=== PATIENT | female | born 1955 | race Two or more races ===

== ENCOUNTER → 2023-05-12 | Outpatient (CLI) | payer OTHER ==
[2023-05-12 10:41] LABS: Eosinophils # (auto) 0.1 10 ^3/uL (0-0.8); Mean Corpuscular Hgb Conc. 31.5 g/dL (32.0-36.0); Monocytes # (auto) 0.5 10 ^3/uL (0-1.3); Nucleated Red Blood Cells % 0.1 %; White Blood Cell 6.6 10^3/uL (4.4-10.8)
[2023-05-12 10:42] LABS: Basophils # (auto) 0.1 10 ^3/uL (0-0.2); Basophils % (auto) 0.8 % (0.0-2.0); Eosinophils % (auto) 1.1 % (0.0-7.0); Hematocrit 39.1 % (36.0-46.0); Hemoglobin 12.3 g/dL (12.2-16.2); Lymphocytes % (auto) 45.6 % (10.0-50.0); Mean Corpuscular Hemoglobin 24.1 pg (28.0-32.0); Mean Corpuscular Volume 76.5 fL (80.0-100.0); Monocytes % (auto) 7.1 % (0.0-12.0); Neutrophils % (auto) 45.4 % (37.0-80.0); Red Blood Cells 5.11 10^6/uL (4.0-5.20); Red Cell Distribution Width 16.4 % (11.8-14.3)
[2023-05-12 10:54] LABS: Urine Bacteria FEW /hpf (None Seen); Urine Blood Negative /uL (Negative); Urine Mucus FEW (None Seen); Urine Specific Gravity 1.023 (1.001-1.035); Urine WBC 13 /hpf (0 - 5)
[2023-05-12 11:01] LABS: Potassium 4.4 mmol/L (3.5-5.1)
[2023-05-12 11:08] LABS: Folate (Folic Acid) > 24.00 ng/mL (5.38-24)
[2023-05-12 11:21] LABS: Albumin 3.9 g/dL (3.4-5.0); BUN/Creatinine Ratio 24.1 (10.0-20.0); Bilirubin, Total 0.4 mg/dL (0.2-1.0); Calcium 8.9 mg/dL (8.5-10.1); Total Protein 7.6 g/dL (6.4-8.2); Uric Acid 5.6 mg/dL (2.6-6.0)
== END | disposition home or self-care (01) ==
LOC: LAB 10:15
PROVIDERS: ATTEND Family Medicine
DX: E78.2 Mixed hyperlipidemia (principal); E03.9 Hypothyroidism, unspecified; M19.91 Primary osteoarthritis, unspecified site
CPT/HCPCS: 36415; 80053; 80061; 81001; 82607; 82746; 83036; 83540; 84443; 84550; 85025; 87086

== ENCOUNTER 2023-07-04 06:14 | Day surgery (SDC) | payer OTHER ==
[2023-07-01 11:58] LABS: Basophils # (auto) 0.1 10 ^3/uL (0-0.2); Eosinophils # (auto) 0.1 10 ^3/uL (0-0.8); Lymphocytes # (auto) 3.6 10 ^3/uL (0.4-5.4); White Blood Cell 8.3 10^3/uL (4.4-10.8)
[2023-07-01 11:59] LABS: Basophils % (auto) 1.1 % (0.0-2.0); Eosinophils % (auto) 1.4 % (0.0-7.0); Hematocrit 37.5 % (36.0-46.0); Hemoglobin 12.2 g/dL (12.2-16.2); Lymphocytes % (auto) 43.2 % (10.0-50.0); Mean Corpuscular Hemoglobin 24.6 pg (28.0-32.0); Mean Corpuscular Hgb Conc. 32.6 g/dL (32.0-36.0); Mean Corpuscular Volume 75.6 fL (80.0-100.0); Monocytes # (auto) 0.7 10 ^3/uL (0-1.3); Monocytes % (auto) 8.1 % (0.0-12.0); Neutrophils # (auto) 3.8 10 ^3/uL (1.6-8.6); Neutrophils % (auto) 46.2 % (37.0-80.0); Nucleated Red Blood Cells % 0.2 %; Red Blood Cells 4.96 10^6/uL (4.0-5.20); Red Cell Distribution Width 16.5 % (11.8-14.3)
[2023-07-01 12:23] LABS: INR 0.93 (0.9-1.15); Partial Thromboplastin Time 26.3 SEC (24.5-34.5); Prothrombin Time 9.8 sec (9.3-11.8)
[2023-07-01 12:37] LABS: Alanine Aminotransferase 21 U/L (7-40); Albumin 4.7 g/dL (3.2-4.8); Alkaline Phosphatase 80 U/L (46-116); Aspartate Aminotransferase 10 U/L (13-40); BUN/Creatinine Ratio 14.1 (10.0-20.0); Blood Urea Nitrogen 9 mg/dL (9-23); Calcium 9.4 mg/dL (8.5-10.1); Carbon Dioxide 29 mmol/L (20-30); Glucose 100 mg/dL (74-106)
[2023-07-01 12:38] LABS: Bilirubin, Total 0.6 mg/dL (0.2-1.0); Total Protein 7.4 g/dL (5.7-8.2)
[2023-07-01 13:01] LABS: Urine Bacteria NONE SEEN /hpf (None Seen); Urine Blood Negative /uL (Negative); Urine Clarity Clear (Clear); Urine Color Yellow (Yellow); Urine Mucus FEW (None Seen); Urine Protein, UAD TRACE (Negative); Urine Specific Gravity 1.033 (1.001-1.035); Urine Urobilinogen Normal (Negative); Urine WBC 2 /hpf (0 - 5); Urine pH 5.5 (5.0-8.0)
[2023-07-01 13:13] LABS: Anion Gap 5 (5-15); Chloride 102 mmol/L (98-107); Potassium 4.2 mmol/L (3.5-5.1); Sodium 136 mmol/L (136-145)
[~2023-07-04] VITALS: Ht 165.1 cm; Wt 94.8 kg
[~2023-07-04 06:14] MED LIST: HYDR-4072 PO; IBUP-1456 PO
[2023-07-04] MEDS ORDERED: ceFAZolin 1GM/50ML 100 ML IV ONE (06:40)
[2023-07-04] MEDS ORDERED: BUPIVACAINE 0.25% INJ 50ML VIAL ONE (06:51)
[2023-07-04] MEDS ORDERED: LIDOCAINE 1% HCL (LOCAL ANESTH.) INJ 20ML MDV ONE (06:51)
[2023-07-04] MEDS ORDERED: LIDOCAINE W/ EPINEPHRINE 1% 20ML VIAL ONE (07:29)
[2023-07-04] MEDS ORDERED: EPINEPHrine HCL 1 MG/1 ML AMP ONE (07:29)
[2023-07-04] MEDS ORDERED: fentaNYL CITRATE 100 MCG/2 ML VL ONE (07:35)
[2023-07-04] MEDS ORDERED: MIDAZOLAM HCL 2MG/2ML 2ml VIAL (1mg/ml) ONE (07:35)
[2023-07-04] MEDS ORDERED: ONDANSETRON HCL 4 MG/2 ML VIAL ONE (07:37)
[2023-07-04] MEDS ORDERED: LIDOCAINE 2% (LOCAL ANESTH.) PF 5ml SDV ONE (07:37)
[2023-07-04] MEDS ORDERED: PROPOFOL 10 MG/ML 20 ML IV ONE (07:38)
[2023-07-04] MEDS ORDERED: HYDROmorphone HCL 2 MG/ML VL/or syr IV PRN (08:30)
[2023-07-04] MEDS ORDERED: ONDANSETRON HCL 4 MG/2 ML VIAL IV PRN (08:30)
[2023-07-04 09:12] VITALS: TEMP 97.4; O2SAT 98
[2023-07-04] MEDS ORDERED: AUG875T PO (09:30)
[2023-07-04 09:42] VITALS: BP 125/54; PULSE 59; RESP 14; O2SAT 98
== END 2023-07-04 09:50 | disposition home or self-care (01) ==
LOC: SUR 06:14
PROVIDERS: ATTEND Student in an Organized Health Care Education/Training Program
DX: M12.271 Villonodular synovitis (pigmented), right ankle and foot (principal); M13.871 Other specified arthritis, right ankle and foot
CPT/HCPCS: 29895; 36415; 80053; 81001; 85025; 85610; 85730; J0690; J2001; J2250; J2405; J2704; J3010; J3490; J0171

== ENCOUNTER → 2023-11-05 | Outpatient (CLI) | payer OTHER ==
[~2023-11-05] MED LIST changes: +AUG875T PO
[2023-11-05 09:37] LABS: Urine Epithelial Cast None Seen /hpf (<5)
[2023-11-05 09:55] LABS: Basophils # (auto) 0 10 ^3/uL (0-0.2); Basophils % (auto) 0.8 % (0.0-2.0); Eosinophils # (auto) 0.1 10 ^3/uL (0-0.8); Hemoglobin 12.3 g/dL (12.2-16.2); Nucleated Red Blood Cells % 0.1 %
[2023-11-05 09:57] LABS: Eosinophils % (auto) 1.5 % (0.0-7.0); Hematocrit 39.2 % (36.0-46.0); Lymphocytes % (auto) 52.1 % (10.0-50.0); Mean Corpuscular Hemoglobin 23.6 pg (28.0-32.0); Mean Corpuscular Hgb Conc. 31.5 g/dL (32.0-36.0); Mean Corpuscular Volume 75.1 fL (80.0-100.0); Monocytes # (auto) 0.5 10 ^3/uL (0-1.3); Monocytes % (auto) 8.7 % (0.0-12.0); Neutrophils # (auto) 2.1 10 ^3/uL (1.6-8.6); Neutrophils % (auto) 36.9 % (37.0-80.0); Red Blood Cells 5.21 10^6/uL (4.0-5.20); Red Cell Distribution Width 17.3 % (11.8-14.3); White Blood Cell 5.8 10^3/uL (4.4-10.8)
[2023-11-05 10:09] LABS: Urine Bacteria FEW /hpf (None Seen); Urine Blood Negative /uL (Negative); Urine Clarity Clear (Clear); Urine Color Yellow (Yellow); Urine Mucus FEW (None Seen); Urine Protein, UAD TRACE (Negative); Urine Specific Gravity 1.028 (1.001-1.035); Urine Urobilinogen Normal (Negative); Urine WBC 11 /hpf (0 - 5); Urine pH 5.5 (5.0-8.0)
[2023-11-05 10:47] LABS: Alanine Aminotransferase 23 U/L (7-40); Albumin 4.8 g/dL (3.2-4.8); Alkaline Phosphatase 81 U/L (46-116); Anion Gap 5 (5-15); Aspartate Aminotransferase 16 U/L (13-40); BUN/Creatinine Ratio 19.7 (10.0-20.0); Blood Urea Nitrogen 12 mg/dL (9-23); Calcium 9.7 mg/dL (8.5-10.1); Carbon Dioxide 27 mmol/L (20-30); Chloride 107 mmol/L (98-107); Cholesterol 244 mg/dL (< 200); Glucose 99 mg/dL (74-106); HDL Cholesterol 54 mg/dL (40-59); LDL Cholesterol 167 mg/dL (< 100); Potassium 4.1 mmol/L (3.5-5.1); Sodium 139 mmol/L (136-145); Triglycerides 187 mg/dL (< 150)
[2023-11-05 10:48] LABS: Bilirubin, Total 0.7 mg/dL (0.2-1.0); Total Protein 7.4 g/dL (5.7-8.2)
[2023-11-05 11:03] LABS: Uric Acid 6.9 mg/dL (3.1-7.8)
[2023-11-05 11:06] LABS: % Iron Saturation 9.1 % (15-50)
[2023-11-05 11:13] LABS: Folate (Folic Acid) > 24.00 ng/mL (>5.38)
== END | disposition home or self-care (01) ==
LOC: LAB 09:26
PROVIDERS: ATTEND Family Medicine
DX: Z00.00 Encounter for general adult medical examination without abnormal findings (principal); D50.9 Iron deficiency anemia, unspecified; Z13.31 Encounter for screening for depression; M19.91 Primary osteoarthritis, unspecified site
CPT/HCPCS: 36415; 80053; 80061; 81001; 82607; 82746; 83036; 83540; 83550; 84403; 84443; 84550; 85025; 87086

== ENCOUNTER → 2025-01-10 | Outpatient (CLI) | payer OTHER ==
[2025-01-10 09:07] LABS: Basophils # (auto) 0 10 ^3/uL (0-0.2); Eosinophils # (auto) 0.1 10 ^3/uL (0-0.8); Hemoglobin 13.1 g/dL (12.2-16.2); Lymphocytes # (auto) 3.2 10 ^3/uL (0.4-5.4); Monocytes # (auto) 0.4 10 ^3/uL (0-1.3); Neutrophils # (auto) 2.1 10 ^3/uL (1.6-8.6); White Blood Cell 5.8 10^3/uL (4.4-10.8)
[2025-01-10 09:10] LABS: Basophils % (auto) 0.6 % (0.0-2.0); Eosinophils % (auto) 1.7 % (0.0-7.0); Hematocrit 40.1 % (36.0-46.0); Lymphocytes % (auto) 54.4 % (10.0-50.0); Mean Corpuscular Hemoglobin 25.7 pg (28.0-32.0); Mean Corpuscular Hgb Conc. 32.7 g/dL (32.0-36.0); Mean Corpuscular Volume 78.8 fL (80.0-100.0); Monocytes % (auto) 7.2 % (0.0-12.0); Neutrophils % (auto) 36.1 % (37.0-80.0); Nucleated Red Blood Cells % 0.1 %; Platelet Count (auto) 444 10^3/uL (140-450); Red Cell Distribution Width 14.9 % (11.8-14.3)
[2025-01-10 09:12] LABS: Urine Bacteria FEW /hpf (None Seen); Urine Blood Negative /uL (Negative); Urine Clarity Clear (Clear); Urine Color Yellow (Yellow); Urine Hyaline Cast FEW /lpf (0 - 2); Urine Mucus FEW (None Seen); Urine Protein, UAD Negative (Negative); Urine Specific Gravity 1.019 (1.001-1.035); Urine Squamous Epithelial Cell FEW /hpf (<5); Urine Urobilinogen Normal (Negative); Urine WBC 1 /HPF (0-5); Urine pH 7.5 (5.0-9.0)
[2025-01-10 10:33] LABS: Alanine Aminotransferase 26 U/L (7-40); Albumin 4.9 g/dL (3.2-4.8); Alkaline Phosphatase 87 U/L (46-116); Aspartate Aminotransferase 17 U/L (13-40); BUN/Creatinine Ratio 14.3 (10.0-20.0); Blood Urea Nitrogen 10 mg/dL (9-23); Calcium 10.8 mg/dL (8.7-10.4); Carbon Dioxide 27 mmol/L (20-31); Cholesterol 259 mg/dL (< 200); Glucose 98 mg/dL (74-106); LDL Cholesterol 170 mg/dL (< 100); Magnesium 2.1 mg/dL (1.6-2.6); Potassium 4.5 mmol/L (3.5-5.1); Sodium 136 mmol/L (136-145); Total Protein 7.6 g/dL (5.7-8.2); Triglycerides 175 mg/dL (< 150)
[2025-01-10 10:34] LABS: Bilirubin, Total 0.6 mg/dL (0.2-1.0)
[2025-01-10 10:39] LABS: % Iron Saturation 10.5 % (15-50)
[2025-01-10 10:41] LABS: HDL Cholesterol 61 mg/dL (40-59)
[2025-01-10 10:42] LABS: Anion Gap 5 (5-15); Chloride 104 mmol/L (98-107)
[2025-01-10 10:48] LABS: Uric Acid 6.4 mg/dL (3.1-7.8)
== END | disposition home or self-care (01) ==
LOC: LAB 08:43
PROVIDERS: ATTEND Family Medicine
DX: E78.2 Mixed hyperlipidemia (principal); E03.9 Hypothyroidism, unspecified; N30.00 Acute cystitis without hematuria; D50.9 Iron deficiency anemia, unspecified; R73.03 Prediabetes; Z79.899 Other long term (current) drug therapy
CPT/HCPCS: 36415; 80053; 80061; 81001; 82306; 82607; 83036; 83540; 83550; 83735; 84443; 84550; 85025; 87086